=== PATIENT | male | born 1960 | race African-American/Black ===

== ENCOUNTER 2016-12-15 09:48 | Emergency (ER) | payer BC ==
[~2016-12-15] VITALS: Ht 185.4 cm; Wt 120.7 kg
--- NOTE | 2016-12-15 10:27 | RAD ---
EXAM: Chest, 2 views. HISTORY: Chest pain. COMPARISON: None. FINDINGS: Frontal and lateral views of the chest are obtained. There is no infiltrate, effusion or pneumothorax. The heart is normal in size.. IMPRESSION: No acute pulmonary finding.
[2016-12-15 10:36] LABS: BASO % 1 % (0-3); EOS % 2 % (0-3); HEMATOCRIT 39.6 % (39.0-53.0); HEMOGLOBIN 12.9 g/dL (13.0-17.5); LYMPH # 1.6 x10^3/uL (1.0-4.8); LYMPH % 28 % (24-48); MEAN CORPUSCULAR HEMOGLOBIN 25 pg (25-35); MEAN CORPUSCULAR HGB CONC 33 g/dL (31-37); MEAN CORPUSCULAR VOLUME 77 fL (79-100); MONO % 12 % (0-9); NEUT % 57 % (31-73); PLATELET COUNT 190 x10^3/uL (140-400); RED BLOOD COUNT 5.12 x10^6/uL (4.30-5.70); RED CELL DISTRIBUTION WIDTH 15.3 % (11.5-14.5); WHITE BLOOD COUNT 5.8 x10^3/uL (4.0-11.0)
[2016-12-15] MEDS ORDERED: ASPIRIN 325 MG TABLET ONE (10:40)
--- NOTE | 2016-12-15 10:40 | EKG ---
[facility] [address] [place] [address] Test Date: 2016-12-15 Test Time: 09:57:53 Pat Name: SHAYY ENCARNACION Department: Room: Gender: M [employer] Electric[employer]: : 1960 Requested By: Tiffany WEEKS Order Number: [id number] Reading MD: Kirti Bey Measurements Intervals Assumption Rate: 62 P: 18 ME: 196 QRS: -11 QRSD: 108 T: 114 QT: 412 QTc: 420 Interpretive Statements SINUS RHYTHM LEFTWARD AXIS T ABNORMALITY IN ANTEROLATERAL LEADS ABNORMAL ECG RI6.01 No previous ECG available for comparison Electronically Signed On 12-15-2016 19:56:59 CDT by Kirti Bey
[2016-12-15] MEDS ORDERED: ASPIRIN 325 MG TABLET PO ONE (10:45)
[2016-12-15 10:48] LABS: CALCIUM 9.8 mg/dL (8.5-10.1); POTASSIUM 3.5 mmol/L (3.5-5.1)
[2016-12-15 10:59] VITALS: BP 172/93
--- NOTE | 2016-12-15 11:06 | PHYS DOC ---
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 States he feels his hand is asleep. He denies injury, f/c, n/v, cough, dyspnea, palpitations, diaphoresis, orthopnea, neck pain, back pain, headache, vision changes. Review of Systems Review of Systems Constitutional: Denies fever or chills [] Eyes: Denies change in visual acuity, redness, or eye pain [] HENT: Denies nasal congestion or sore throat [] Respiratory: Denies cough or shortness of breath [] Cardiovascular: No additional information not addressed in HPI [] GI: Denies abdominal pain, nausea, vomiting, bloody stools or diarrhea [] : Denies dysuria or hematuria [] Musculoskeletal: Denies back pain [] Integument: Denies rash or skin lesions [] Neurologic: Denies headache, focal weakness [] Endocrine: Denies polyuria or polydipsia [] Current Medications Current Medications Current Medications Medications (Trade) Dose Ordered Sig/[facility] Start Time Stop Time Status Last Admin Dose Admin Aspirin (Annita Aspirin) 325 mg STK-MED ONCE 12/15/16 10:40 12/15/16 10:41 DC Allergies Allergies Allergies Coded Allergies Type Severity Reaction Last Updated Verified No Known Drug Allergies 12/15/16 No Physical Exam Physical Exam Constitutional: Well developed, well nourished, no acute distress, non-toxic appearance. [] HENT: Normocephalic, atraumatic, bilateral external ears normal, oropharynx moist, nose normal. [] Eyes: PERRLA, EOMI. [] Neck: Normal range of motion, supple. [] Cardiovascular:Heart rate regular rhythm [] Lungs & Thorax: Bilateral breath sounds clear to auscultation [] Abdomen: Bowel sounds normal, soft, no tenderness. [] Skin: Warm, dry, no erythema, no rash. [] Back: Normal ROM. [] Extremities: No tenderness, ROM intact, no edema. Left hand with subjective diminished sensation to light touch in median nerve distribution; neg phalen and tinel's; no worsening with ulnar tunnel pressure [] Neurologic: Alert and oriented X 3, normal motor function, normal sensory function, no focal deficits noted. [] Psychologic: Affect normal, judgement normal, mood normal. [] Current Patient Data Vital Signs Vital Signs Date Time Temp Pulse Resp B/P Pulse Ox O2 Delivery O2 Flow Rate FiO2 12/15/16 10:59 126 18 172/93 95 12/15/16 10:07 98.3 Room Air 98.3 Lab Values Laboratory Tests Test 12/15/16 10:02 White Blood Count 5.8x10^3/uL (4.0-11.0) Red Blood Count 5.12x10^6/uL (4.30-5.70) Hemoglobin 12.9g/dL (13.0-17.5) L Hematocrit 39.6% (39.0-53.0) Mean Corpuscular Volume 77fL (79-100) L Mean Corpuscular Hemoglobin 25pg (25-35) Mean Corpuscular Hemoglobin Concent 33g/dL (31-37) Red Cell Distribution Width 15.3% (11.5-14.5) H Platelet Count 190x10^3/uL (140-400) Neutrophils (%) (Auto) 57% (31-73) Lymphocytes (%) (Auto) 28% (24-48) Monocytes (%) (Auto) 12% (0-9) H Eosinophils (%) (Auto) 2% (0-3) Basophils (%) (Auto) 1% (0-3) Neutrophils # (Auto) 3.4x10^3uL (1.8-7.7) Lymphocytes # (Auto) 1.6x10^3/uL (1.0-4.8) Monocytes # (Auto) 0.7x10^3/uL (0.0-1.1) Eosinophils # (Auto) 0.1x10^3/uL (0.0-0.7) Basophils # (Auto) 0.0x10^3/uL (0.0-0.2) Sodium Level 140mmol/L (136-145) Potassium Level 3.5mmol/L (3.5-5.1) Chloride Level 99mmol/L (98-107) Carbon Dioxide Level 32mmol/L (21-32) Anion Gap 9 (6-14) Blood Urea Nitrogen 14mg/dL (8-26) Creatinine 1.0mg/dL (0.7-1.3) Estimated GFR (Cockcroft-Gault) 77.0 Glucose Level 148mg/dL (70-99) H Calcium Level 9.8mg/dL (8.5-10.1) Troponin I Quantitative < 0.017ng/mL (0.000-0.055) Laboratory Tests 12/15/16 10:02 Laboratory Tests 12/15/16 10:02 EKG EKG EKG as interpreted by me as normal sinus rhythm, rate 62, no ST-T changes, normal intervals, no ectopy Radiology/Procedures Radiology/Procedures Chest xray as interpreted by me with no acute cardiopulmonary disease process Course & Med Decision Making Course & Med Decision Making Pertinent Labs and Imaging studies reviewed. (See chart for details) Workup is unremarkable. Suspect radiculopathy as etiology of symptoms. Return precautions given. He understands and agrees with plan. Dragon Disclaimer Dragon Disclaimer This electronic medical record was generated, in whole or in part, using a voice recognition dictation system. Departure Departure Impression: Primary Impression: Left arm pain Additional Impression: Chest pain Disposition: 01 HOME, SELF-CARE Condition: STABLE Referrals: CAMILLE URENA MD (PCP) Patient Instructions: Musculoskeletal Pain Additional Instructions: Take naproxen or tylenol as needed for pain. Follow up with your primary care doctor. Return for any concerns. Problem Qualifiers Additional Impression: Chest pain Chest pain type: unspecified Qualified Code: R07.9 - Chest pain, unspecified Tiffany WEEKS MD Dec 15, 2016 11:06
== END 2016-12-15 11:15 | disposition home or self-care (01) ==
LOC: ER 09:48
DX: R07.89 Other chest pain (principal); M79.602 Pain in left arm; R20.0 Anesthesia of skin; G89.29 Other chronic pain; E11.52 Type 2 diabetes mellitus with diabetic peripheral angiopathy with gangrene; K21.9 Gastro-esophageal reflux disease without esophagitis; I10 Essential (primary) hypertension
CPT/HCPCS: 36415; 71020; 80048; 84484; 85027; 93005; 99285-25